=== PATIENT | male | born 1970 | race Caucasian/White ===

== ENCOUNTER → 2017-11-25 | Outpatient (CLI) | payer BC ==
--- NOTE | 2017-11-25 16:01 | RAD ---
Two-view left foot dated 11/25/2017. No comparison available. CLINICAL INDICATION: Pain after crush injury this morning. FINDINGS: Two-view left foot show normal bony alignment. No displaced fracture. No acute osseous or articular abnormality. Prominent calcaneal spur. IMPRESSION: No acute radiographic abnormality. Electronically signed by: Jacob George MD (11/25/2017 3:58 PM) [id number]
--- NOTE | 2017-11-25 16:17 | RAD ---
Cervical spine, 5 views, 11/25/2017: HISTORY: Injury. There is mild to moderate disc space narrowing at C4-5 and C5-6 with moderate anterior and posterior marginal spurring. The other intervertebral disc spaces are well-maintained. No fracture or dislocation is identified. The prevertebral soft tissues are unremarkable. IMPRESSION: 1. Moderate degenerative disc disease at C4-5 and C5-6. 2. No acute bony abnormality is detected. Electronically signed by: Terry Ingram MD (11/25/2017 4:15 PM) [facility]
== END | disposition home or self-care (01) ==
LOC: PMG 15:24
PROVIDERS: ATTEND Physician Assistant
DX: M77.32 Calcaneal spur, left foot (principal); M50.322 Other cervical disc degeneration at C5-C6 level
CPT/HCPCS: 72050; 73620

== ENCOUNTER → 2017-12-25 | Outpatient (CLI) | payer BC | END | disposition home or self-care (01) | LOC: SURG 14:32 | PROVIDERS: ATTEND Anesthesiology Pain Medicine | DX: M47.814 Spondylosis without myelopathy or radiculopathy, thoracic region (principal); M47.812 Spondylosis without myelopathy or radiculopathy, cervical region; M79.1 Myalgia; G89.4 Chronic pain syndrome | CPT/HCPCS: 99204 ==

== ENCOUNTER → 2020-05-07 | Outpatient (CLI) | payer BC ==
--- NOTE | 2020-05-07 16:01 | RAD ---
Left upper extremity venous duplex study Clinical History: Left upper extremity swelling and pain Technique: Using a combination of real time ultrasound imaging and color-flow and pulse Doppler imagi ng techniques, including spectral analysis, graded compression and augmentation, duplex evaluation of the deep venous system of the left upper extremity was performed. Multiple images were obtained. Findings: Evaluation is positive for finding of short segment of thrombus within the left basilic vei n. Patient reports this is approximately at the site of prior AV. This is a superficial vein. More pr oximal and distal basilic vein appear to remain patent.. There is no sonographic evidence of deep venous thrombosis involving the visualized deep venous struc tures of the left upper extremity. Impression: 1.No evidence of deep venous thrombosis involving the left lower extremity 2. Short segment superficial venous thrombosis involving the left basilic vein as described Electronically signed by: Camacho Thompson MD (05/07/2020 3:59 PM) [id number]
== END ==
LOC: US 13:21
PROVIDERS: ATTEND Nurse Practitioner Family
DX: I82.812 Embolism and thrombosis of superficial veins of left lower extremity (principal)
CPT/HCPCS: 93971

== ENCOUNTER → 2021-03-19 | Outpatient (CLI) | payer BC ==
--- NOTE | 2021-03-19 17:48 | RAD ---
EXAM: XR ABDOMEN 2V 03/19/2021 3:36 PM CLINICAL INDICATION: Lower abdominal pain COMPARISON: None TECHNIQUE: AP supine and upright view of the abdomen. FINDINGS: Bowel gas pattern is nonspecific and nonobstructive. There is a normal volume of stool. No abnormal calcifications. No pneumoperitoneum. Lung bases are clear. 6 mm sclerotic focus in the late ral right iliac wing, likely bone island. Additional round 8mm hyperdensity projecting over the right iliac bone on the first images is now present on the 30 minutes and may have been external to the pa tient. No acute osseous abnormality. IMPRESSION: No acute abnormality. Electronically signed by: Tania Ng MD (03/19/2021 5:46 PM) [id number]
== END ==
LOC: RAD 15:23
PROVIDERS: ATTEND Physician Assistant
DX: R10.30 Lower abdominal pain, unspecified (principal)
CPT/HCPCS: 74019